=== PATIENT | female | born 1980 | race Caucasian/White ===

== ENCOUNTER → 2017-03-19 10:37 | Outpatient (CLI) | payer BC | END | disposition home or self-care (01) | LOC: D.LAB 10:37 | DX: N91.2 Amenorrhea, unspecified (principal) ==

== ENCOUNTER → 2019-02-15 08:01 | Outpatient (CLI) | payer BC | END | disposition home or self-care (01) | LOC: D.LAB 08:01 | PROVIDERS: ATTEND Specialist | DX: N91.0 Primary amenorrhea (principal) ==

== ENCOUNTER 2019-04-04 08:59 | Emergency (ER) | payer BC ==
[~2019-04-04] VITALS: Ht 162.6 cm; Wt 86.4 kg
[2019-04-04 09:16] VITALS: Ht 162.6 cm; Wt 86.4 kg
[2019-04-04] MEDS ORDERED: PRENAVITE1 TAB PO (09:17)
[2019-04-04 10:13] LABS: CALC OSMOLALITY 275 mosm/kg (275-300); CARBON DIOXIDE 20.7 mmol/L (21.0-32.0); CHLORIDE - SERUM 104 mmol/L (98-107); CREATININE - SERUM 0.5 mg/dL (0.6-1.3); GLUCOSE 96 mg/dL (74-106); POTASSIUM - SERUM 3.8 mmol/L (3.5-5.1); SODIUM 139 mmol/L (136-145); UREA NITROGEN 7 mg/dL (7-18); eGFR NON AFRICAN AMERICAN > 90 mL/min (90-120)
[2019-04-04 10:24] LABS: BASOPHILS 0.2 % (0-2); EOSINOPHILS 1.5 % (0-7); HEMATOCRIT 37.5 % (36.0-48.0); HEMOGLOBIN 12.4 g/dL (12-16); IMMATURE GRANULOCYTES 0.7 % (0-5); LYMPHOCYTES 20.1 % (15-50); MCH 26.8 pg (26.0-34.0); MCHC 33.1 g/dL (31.0-37.0); MEAN PLATELET VOLUME 10.4 fL (7.4-10.4); MONOCYTES 4.8 % (2-11); NEUTROPHILS 72.7 % (40-80); PLATELET COUNT 203 10x3/uL (130-400); RBC 4.63 10x6/uL (4.00-5.40); RDW 16.6 % (11.5-14.5); WBC 11.1 10x3/uL (4.8-10.8)
[2019-04-04 10:46] LABS: ALBUMIN 3.4 g/dL (3.4-5.0); ALKALINE PHOSPHATASE 71 U/L (46-116); ALT (SGPT) 17 U/L (10-68); BILIRUBIN - TOTAL 0.79 mg/dL (0.2-1.3); HCG - QUANTITATIVE (MATERNAL) 18063 mIU/mL; PROTEIN - SERUM 7.8 g/dL (6.4-8.2)
[2019-04-04 11:52] VITALS: BP 114/54
== END 2019-04-04 11:53 | disposition home or self-care (01) ==
LOC: D.ER 08:59
PROVIDERS: Family Medicine
DX: O26.892 Other specified pregnancy related conditions, second trimester (principal); Z3A.14 14 weeks gestation of pregnancy; M25.561 Pain in right knee; M70.51 Other bursitis of knee, right knee; M25.461 Effusion, right knee